=== PATIENT | female | born 1985 | race Caucasian/White ===

== ENCOUNTER 2021-10-23 18:32 | Emergency (ER) | payer OTHER ==
[2021-10-23 20:11] LABS: BILIRUBIN NEGATIVE (NEGATIVE); BLOOD NEGATIVE Ery/uL (NEGATIVE); CLARITY CLEAR (CLEAR); COLOR YELLOW (YELLOW); GLUCOSE (U) NORMAL (NORMAL); LEUKOCYTES NEGATIVE Leu/uL (NEGATIVE); NITRITE NEGATIVE (NEGATIVE); PROTEIN NEGATIVE (NEGATIVE); SPECIFIC GRAVITY 1.015 (1.001-1.030); UROBILINOGEN 0.2 mg/dL (0.2-1.0); pH 6.5 (5.0-9.0)
[2021-10-23] MEDS ORDERED: NAPROXEN500 MG PO (21:17)
[2021-10-23] MEDS ORDERED: BACLOFEN 10MG T10 MG PO (21:17)
== END 2021-10-23 21:33 | disposition home or self-care (01) ==
LOC: FER 18:32
PROVIDERS: Nurse Practitioner Family
DX: M54.50 Low back pain, unspecified (principal); R07.81 Pleurodynia; J45.909 Unspecified asthma, uncomplicated; V49.40XA Driver injured in collision with unspecified motor vehicles in traffic accident, initial encounter
CPT/HCPCS: 71101; 72131; 81003; 96372; J1100; J1885